=== PATIENT | male | born 1945 | race African-American/Black ===

== ENCOUNTER 2022-03-13 08:17 | Inpatient (IN) | payer OTHER ==
[2022-03-13 08:41] LABS: #Monocytes 0.7 10x3/uL (0.0-1.1); #Neutrophils 4.6 10x3/uL (1.5-8.4); %Basophils 0.3 % (0.0-2.0); %Eosinophils 0.5 % (0.0-6.0); %Lymphocytes 15.2 % (18.0-47.0); %Monocytes 10.5 % (0.0-10.0); Mean Corpuscular HGB CONC 33.4 g/dL (32.0-36.0); Mean Corpuscular Hemoglobin 26.7 pg (27.0-33.0); Mean Corpuscular Volume 79.9 fl (81.2-95.1); Mean Platelet Volume 11.1 fl (7.4-10.4); Platelet Count 107 10x3/uL (150-450); Red Blood Cell (RBC) Count 4.12 10x6/uL (4.32-5.72); White Blood Cell (WBC) Count 6.3 10x3/uL (3.5-10.5)
[2022-03-13 08:50] LABS: ALT (SGPT) 9 U/L (8-55); AST (SGOT) 14 U/L (5-34); Albumin 4.1 g/dL (3.4-4.8); Alkaline Phosphatase 72 U/L (40-110); Anion Gap 14 mmol/L (10-20); BUN (Urea Nitrogen) 31 mg/dL (8.4-25.7); Bilirubin, Total 0.5 mg/dL (0.2-1.2); Calc. Creatinine Clearance 0 mL/min (70-130); Carbon Dioxide 23 mmol/L (23-31); Chloride 102 mmol/L (98-107); Estimated GFR 37; Globulin 3.3 g/dL (2.4-3.5); Glucose 187 mg/dL (83-110); Lipase 45 U/L (8-78); Potassium 4.9 mmol/L (3.5-5.1); Protein, Total 7.4 g/dL (5.8-8.1); Sodium 134 mmol/L (136-145)
[2022-03-13 08:56] LABS: Hypochromia SLIGHT = 6-15 cells (100X) (0-5/hpf); Ovalocytes SLIGHT = 2-5 cells (100X) (0-1/hpf)
[2022-03-13 08:57] LABS: Platelet Morphology Comment Appears Decreased
[2022-03-13] MEDS ORDERED: Morphine 2 MG/ML VIAL ONE (09:24)
[2022-03-13] MEDS ORDERED: Nitroglycerin 0.4 MG TAB 1 EACH ONE (09:28)
[2022-03-13] MEDS ORDERED: Acyclovir 400 mg Tablet PO SCH ×2 (09:45→10:00)
[2022-03-13] MEDS ORDERED: Metoprolol Tartrate 5 MG/5 ML VIAL ONE (10:42)
[2022-03-13 12:06] LABS: Troponin I 0.027 ng/mL (< 0.028)
[2022-03-13] MEDS ORDERED: Morphine 4 MG/ML VIAL ONE (12:22)
[2022-03-13] MEDS ORDERED: Acetaminophen 650 MG Suppository PR PRN (12:49)
[2022-03-13] MEDS ORDERED: Guaifenesin DM 100-10/5 ML UDCUP PO PRN (12:49)
[2022-03-13] MEDS ORDERED: Ondansetron ODT 4 MG TAB PO PRN (12:49)
[2022-03-13] MEDS ORDERED: Ondansetron PF 4 MG/2 ML Vial IVP PRN (12:49)
[2022-03-13] MEDS ORDERED: Nitroglycerin 2% Ointment 1 INCH/1 GM Packet TOP SCH (14:00)
[2022-03-13 14:45] LABS: Troponin I 0.029 ng/mL (< 0.028)
[2022-03-13] MEDS ORDERED: Acyclovir 200 mg Capsule PO SCH (16:00)
[2022-03-13 16:55] VITALS: BMI 23.3
[2022-03-13] MEDS: hydrALAZINE 20 MG/ML VIAL SLOW IVP PRN (18:31)
[2022-03-13] MEDS ORDERED: Metoprolol Tartrate 25 MG TAB PO SCH (21:00)
[2022-03-13] MEDS ORDERED: Famotidine 20 MG TAB PO SCH (21:00)
[2022-03-13] MEDS: Acyclovir 400 mg Tablet PO SCH (21:42)
[2022-03-13] MEDS: Metoprolol Tartrate 25 MG TAB PO SCH (21:42)
[2022-03-13] MEDS: Heparin 5,000 UNITS/ML VIAL SC SCH (21:46)
[2022-03-13] MEDS: Nitroglycerin 2% Ointment 1 INCH/1 GM Packet TOP SCH (21:46)
[2022-03-13] MEDS: Acetaminophen 325 MG TAB PO PRN (21:54)
[2022-03-14] MEDS: hydrALAZINE 20 MG/ML VIAL SLOW IVP PRN ×2 (00:59→11:59)
[2022-03-14] MEDS ORDERED: hydrALAZINE 25 MG TAB PO SCH (04:15)
[2022-03-14 05:11] LABS: Anion Gap 18 mmol/L (10-20); BUN (Urea Nitrogen) 39 mg/dL (8.4-25.7); Calc. Creatinine Clearance 29 mL/min (70-130); Calcium 9.9 mg/dL (7.8-10.44); Carbon Dioxide 20 mmol/L (23-31); Chloride 104 mmol/L (98-107); Estimated GFR 33; Glucose 163 mg/dL (83-110); Potassium 4.5 mmol/L (3.5-5.1); Sodium 137 mmol/L (136-145)
[2022-03-14] MEDS: Acetaminophen 325 MG TAB PO PRN ×3 (05:32→23:20)
[2022-03-14] MEDS: Nitroglycerin 2% Ointment 1 INCH/1 GM Packet TOP SCH ×3 (05:32→23:06)
[2022-03-14] MEDS: Aspirin Chewable 81 MG TAB PO SCH (10:09)
[2022-03-14] MEDS: Heparin 5,000 UNITS/ML VIAL SC SCH ×2 (10:09→23:07)
[2022-03-14] MEDS: Metoprolol Tartrate 25 MG TAB PO SCH ×2 (10:10→23:26)
[2022-03-14] MEDS: Sodium Chloride 0.9% 1,000 ML IV SCH (10:20)
[2022-03-14] MEDS ORDERED: NIFEdipine XL 90 MG TAB PO SCH (11:45)
[2022-03-14] MEDS ORDERED: Atorvastatin Calcium 20 MG TAB PO SCH (21:00)
[2022-03-14] MEDS ORDERED: Famotidine 20 MG TAB PO SCH (21:00)
[2022-03-15] MEDS: Acyclovir 400 mg Tablet PO SCH (03:42)
[2022-03-15] MEDS: Sodium Chloride 0.9% 1,000 ML IV SCH (03:50)
[2022-03-15 04:47] LABS: Anion Gap 14 mmol/L (10-20); BUN (Urea Nitrogen) 33 mg/dL (8.4-25.7); Calc. Creatinine Clearance 32 mL/min (70-130); Calcium 9.5 mg/dL (7.8-10.44); Carbon Dioxide 20 mmol/L (23-31); Chloride 106 mmol/L (98-107); Estimated GFR 36; Glucose 153 mg/dL (83-110); Potassium 4.3 mmol/L (3.5-5.1); Sodium 136 mmol/L (136-145)
[2022-03-15 04:51] LABS: Hemoglobin 10.7 g/dL (13.5-17.5); Mean Corpuscular HGB CONC 33.3 g/dL (32.0-36.0); Mean Corpuscular Hemoglobin 26.4 pg (27.0-33.0); Mean Corpuscular Volume 79.3 fl (81.2-95.1); Mean Platelet Volume 10.7 fl (7.4-10.4); Platelet Count 104 10x3/uL (150-450); RBC Distribution Width 13.2 % (11.5-14.5); Red Blood Cell (RBC) Count 4.05 10x6/uL (4.32-5.72); White Blood Cell (WBC) Count 6.1 10x3/uL (3.5-10.5)
[2022-03-15 05:20] LABS: MDiff Complete? YES
[2022-03-15 05:25] LABS: Band 2 % (5-11); Lymphocytes 19 % (21-51); Monocytes 17 % (0-10); Neutrophil 62 % (42-75)
[2022-03-15 05:26] LABS: Platelet Morphology Comment Appears Decreased; RBC Morphology Normal
[2022-03-15] MEDS: Nitroglycerin 2% Ointment 1 INCH/1 GM Packet TOP SCH (07:15)
[2022-03-15] MEDS ORDERED: valACYclovir 500 MG TAB PO SCH (09:00)
[2022-03-15] MEDS ORDERED: NIFEdipine XL 90 MG TAB PO SCH (09:00)
[2022-03-15] MEDS: Aspirin Chewable 81 MG TAB PO SCH (09:12)
[2022-03-15] MEDS: Heparin 5,000 UNITS/ML VIAL SC SCH (09:12)
[2022-03-15] MEDS: Metoprolol Tartrate 25 MG TAB PO SCH (09:14)
[2022-03-15 12:17] VITALS: BP 144/62; TEMP 98.3
== END 2022-03-15 15:00 | disposition home or self-care (01) | DRG 305 ==
LOC: CSHERS 08:17 → CSHERHOLD 12:13 → INTOOBSV 12:13 → OBSVTOIN 12:13 → UNDOADMOB 12:13 → CSHERHOLD 14:42 → CSHTELE 14:42 → OBSVTOIN 03-14 11:43 → CSHERHOLD 03-14 11:43
PROVIDERS: ADMIT Internal Medicine; ATTEND Family Medicine
DX: I16.0 Hypertensive urgency (principal); N17.9 Acute kidney failure, unspecified; T86.19 Other complication of kidney transplant; I10 Essential (primary) hypertension; E11.9 Type 2 diabetes mellitus without complications; E78.5 Hyperlipidemia, unspecified; B02.9 Zoster without complications; N40.0 Benign prostatic hyperplasia without lower urinary tract symptoms; M10.9 Gout, unspecified; F41.9 Anxiety disorder, unspecified; F43.10 Post-traumatic stress disorder, unspecified; D69.6 Thrombocytopenia, unspecified; I35.0 Nonrheumatic aortic (valve) stenosis; Z20.822 Contact with and (suspected) exposure to COVID-19; Y83.8 Other surgical procedures as the cause of abnormal reaction of the patient, or of later complication, without mention of misadventure at the time of the procedure; Z89.022 Acquired absence of left finger(s); Z87.891 Personal history of nicotine dependence
CPT/HCPCS: 36415; 71045; 80048; 80053; 83690; 84484; 85025; 93005; 93010; 94760; 96374; 96375; 96376; G0378; J0360; J1644; J2270; J7050; U0003; U0005